=== PATIENT | male | born 1980 | race Caucasian/White ===

== ENCOUNTER 2016-08-26 15:26 | Emergency (ER) | payer BC ==
[2016-08-26 15:57] VITALS: BP 130/89; PULSE 73; RESP 18; TEMP 97.1
--- NOTE | 2016-08-26 17:04 | CT ---
EXAMINATION TYPE: CT brain wo con DATE OF EXAM: 08/26/2016 5:01 PM COMPARISON: NONE INDICATION: Fall today with right frontal and right parietal lacerations. Some nausea and dizziness. DLP: 1192.00 mGycm, Automated exposure control for dose reduction was used. CONTRAST: None CT of the brain is performed utilizing 3 mm thick sections through the posterior fossa and 3 mm thick sections through the remaining calvarium. Study is performed within 24 hours of arrival to the [facility]. No abnormal hyperdensity is present to suggest an acute intracranial hemorrhage. No mass lesion is evident. No acute infarcts are evident. Ventricles and sulci are appropriate for the patient age. Paranasal sinuses and mastoid air cells within the [id number] are clear. Soft tissue injury along the right parietal region is not identified. IMPRESSIONS: 1. No acute intracranial process.
--- NOTE | 2016-08-26 17:16 | ED ---
Head Injury HPI - General Chief complaint: Head Injury Stated complaint: Fall - Head Lacerations Time Seen by Provider: 08/26/16 16:30 Source: patient, RN notes reviewed Mode of arrival: ambulatory Limitations: no limitations - History of Present Illness Initial comments: is a 36-year-old male presenting to the [facility] approximately 10 hours after falling on the ice and hitting his head. Patient reports that he slightly nauseated while cleaning of the laceration earlier today which prompted him to come to the [facility]. He states he does feel slightly dizzy. Patient is not on any blood thinners. He reports that the lacerations have close and he has not had any bleeding since earlier this morning. Patient states that he has had a mild headache. Patient denies any recent fever, chills, shortness of breath, chest pain, back pain, abdominal pain, nausea vomiting, numbness or tingling, dysuria or hematuria, constipation or diarrhea, headaches or visual changes, or any other current symptoms - Related Data Home Medications Medication Instructions Recorded Confirmed Multivitamins, Thera [Multivitamin] 1 tab PO DAILY 08/26/16 08/26/16 Allergies/Adverse reactions: Allergies Allergy/AdvReac Type Severity Reaction Status Date / Time No Known Allergies Allergy Verified 08/26/16 16:37 Review of Systems ROS Statement: Those systems with pertinent positive or pertinent negative responses have been documented in the HPI. ROS Other: All systems not noted in ROS Statement are negative. Past Medical History Past Medical History: No Reported History History of Any Multi-Drug Resistant Organisms: None Reported Past Surgical History: No Surgical Hx Reported Past Psychological History: No Psychological Hx Reported Smoking Status: Current every day smoker Past Alcohol Use History: Occasional Past Drug Use History: None Reported General Exam - General Exam Comments Initial Comments: Patient is a 36-year-old male. Patient does not appear to be in any acute distress. Limitations: no limitations General appearance: alert, in no apparent distress Head exam: Present: atraumatic, normocephalic, normal inspection Eye exam: Present: normal appearance, PERRL, EOMI. Absent: scleral icterus, conjunctival injection, periorbital swelling ENT exam: Present: normal exam, mucous membranes moist Neck exam: Present: normal inspection. Absent: tenderness, meningismus, lymphadenopathy Respiratory exam: Present: normal lung sounds bilaterally. Absent: respiratory distress, wheezes, rales, rhonchi, stridor Cardiovascular Exam: Present: regular rate, normal rhythm, normal heart sounds. Absent: systolic murmur, diastolic murmur, rubs, gallop, clicks GI/Abdominal exam: Present: soft, normal bowel sounds. Absent: distended, tenderness, guarding, rebound, rigid Extremities exam: Present: normal inspection, full ROM, normal capillary refill. Absent: tenderness, pedal edema, joint swelling, calf tenderness Back exam: Present: normal inspection Neurological exam: Present: alert, oriented X3, CN II-XII intact Expanded Patient oriented to: Present: person, place, time Speech: Present: fluid speech Cranial nerves: EOM's Intact: Normal, Gag Reflex: Normal, Tongue Deviation: Normal Cerebellar function: Finger to Nose: Normal Sensory exam: Upper Extremity Light Touch: Normal, Lower Extremity Light Touch: Normal Motor strength exam: RUE: 5, LUE: 5, RLE: 5, LLE: 5 Eye Response: (4) open spontaneously Motor Response: (6) obeys commands Verbal Response: (5) oriented Last Total: 15 Psychiatric exam: Present: normal affect, normal mood Skin exam: Present: warm, dry, intact, normal color. Absent: rash Course Vital Signs 08/26/16 08/26/16 15:54 17:48 Temperature 97.1 F L 97.1 F L Pulse Rate 73 73 Respiratory 18 18 Rate Blood Pressure 130/89 130/89 O2 Sat by Pulse 99 99 Oximetry Medical Decision Making - Medical Decision Making Patient is a 36-year-old male presenting to the with chief complaint of scalp lacerations and head injury after a fall on the ice approximately 10 hours ago. Patient reports he felt slightly dizzy. She denies any neck injury or pain. CT brain are negative for any acute process. She is lacerations or any close at this time and are unable to be stapled or sutured. Antibiotic ointment was applied. I advised patient on head injury instructions and to return to the [facility] if any alarming signs or symptoms occur. Patient understands treatment plan will comply. Return parameters were discussed. - Radiology Data Radiology results: report reviewed CT brain shows no evidence of any acute process. Disposition Clinical Impression: Head injury, acute, without loss of consciousness, Scalp laceration Disposition: HOME SELF-CARE Condition: Good Instructions: Concussion (ED), Head Injury (ED) Additional Instructions: Patient instructed to monitor for any signs of infection over the laceration. Patient has needs to be monitored for the next 24-48 hours for any abnormal signs of [place] of head injury including altered mental status, abnormal breathing, vomiting or nausea. Referrals: Phani Hansen MD [Primary Care Provider] - 1-2 days Time of Disposition: 17:17
== END 2016-08-26 17:48 | disposition home or self-care (01) ==
LOC: EC 15:26
DX: S01.01XA Laceration without foreign body of scalp, initial encounter (principal); S06.0X0A Concussion without loss of consciousness, initial encounter; F17.200 Nicotine dependence, unspecified, uncomplicated; Z79.899 Other long term (current) drug therapy; W00.0XXA Fall on same level due to ice and snow, initial encounter
CPT/HCPCS: 70450; 99283